=== PATIENT | male | born 1955 | race Caucasian/White ===

== ENCOUNTER 2017-02-12 09:01 | Inpatient (IN) | payer MEDICARE ==
--- NOTE | 2017-02-12 09:28 | ED.PDOC ---
History of Present Illness - General Chief Complaint: Abdominal Pain Stated Complaint: left sided abd pain radiating to back Time Seen by Provider: 02/12/17 09:15 Source: patient Exam Limitations: no limitations - History of Present Illness Initial Comments: Patient presents with two days of hematochezia. He says the blood is bright red and on the toilet paper as well as mixed in the water. He developed LLQ pain last night that was intermittent but in the last two hours has become constant. It wraps around to his left flank. He says it feels like the pain after running for a long time. No previous episodes. Insidious onset. Pain not associated with bowel movements nor eating. No other symptoms. Timing/Duration: 24 hours Severity: mild Improving Factors: nothing Worsening Factors: nothing Associated Symptoms: denies symptoms Allergies/Adverse Reactions: Allergies Penicillins Allergy (Unknown, Verified 02/12/17 09:10) Home Medications: Ambulatory Orders Aspirin [[place] Low Dose Aspiri] 81 mg PO AC 02/12/17 Clonazepam 1 mg PO BEDTIME 02/12/17 Crestor 10 mg PO AC 02/12/17 Fenofibric Acid 45 mg PO 02/12/17 HYDROcodone 10MG/APAP 325MG [[place] 10/325] PRN 02/12/17 Lisinopril 10 mg PO AC 02/12/17 Sertraline HCl 150 mg PO AC 02/12/17 Review of Systems - Review of Systems Constitutional: States: no symptoms reported EENTM: States: no symptoms reported Respiratory: States: no symptoms reported Cardiology: States: no symptoms reported Gastrointestinal/Abdominal: States: see HPI Genitourinary: States: no symptoms reported Musculoskeletal: States: no symptoms reported Skin: States: no symptoms reported Neurological: States: no symptoms reported Endocrine: States: no symptoms reported Hematologic/Lymphatic: States: no symptoms reported Past Medical History (General) - Patient Medical History Hx Seizures: No Hx Stroke: No Hx Dementia: No Hx Asthma: No Hx of COPD: Yes Hx Cardiac Disorders: Yes Hx Congestive Heart Failure: No Hx Pacemaker: No Hx Hypertension: Yes Hx Thyroid Disease: No Hx Diabetes: No Hx Gastroesophageal Reflux: No Hx Renal Disease: No Hx Cancer: No Hx of HIV: No Hx Hepatitis C: No Hx MRSA: No - Vaccination History Hx Tetanus, Diphtheria Vaccination: No Hx Influenza Vaccination: No Hx Pneumococcal Vaccination: No Immunizations Up to Date: No - Social History Hx Tobacco Use: Yes Hx Chewing Tobacco Use: No Hx Alcohol Use: No Hx Substance Use: No Hx Substance Use Treatment: Yes Hx Depression: No Feels Threatened In Home Enviroment: No Feels Threatened In a Relationship: No Hx Physical Abuse: No Hx Emotional Abuse: No Hx Suspected Abuse: No - Activities of Daily Living Hospice Agency (if applicable):: None - Female History Patient is a Female of Child Bearing Age (10 -59 yrs old): No Patient : No Family Medical History - Family History Mother Family History: No Known Living Status: Physical Exam - Physical Exam General Appearance: Alert Respiratory: lungs clear Cardiovascular/Chest: normal peripheral pulses, regular rate, rhythm Gastrointestinal/Abdominal: normal bowel sounds, non tender, soft Back Exam: no CVA tenderness Skin Exam: normal color Progress - Progress Progress: 02/12/17 11:44 CT abdomen/pelvis showed colitis, possibly ischemic. Patient admitted for bowel rest and antibiotics. Departure - Departure Clinical Impression: Colitis Disposition: Admit Patient Condition: Good Departure Forms: ED Discharge - Pt. Copy, Patient Portal Self Enrollment Instructions: DI for Abdominal Pain-Adult Diet: other - as per hospitalist Activity: other - as per hospitalist Referrals: Jose Manuel Meier MD [Primary Care Provider] - 1-2 Weeks Home Medications: Ambulatory Orders Aspirin [[place] Low Dose Aspiri] 81 mg PO AC 02/12/17 Clonazepam 1 mg PO BEDTIME 02/12/17 Crestor 10 mg PO AC 02/12/17 Fenofibric Acid 45 mg PO 02/12/17 HYDROcodone 10MG/APAP 325MG [[place] 10/325] PRN 02/12/17 Lisinopril 10 mg PO AC 02/12/17 Sertraline HCl 150 mg PO AC 02/12/17
--- NOTE | 2017-02-12 11:12 | CT ---
EXAM DESCRIPTION: CT abdomen and pelvis without and with contrast CLINICAL HISTORY: Hematochezia. Abdominal pain. Hematuria. COMPARISON: None Available. TECHNIQUE: Pre and postcontrast spiral CT with intravenous iodinated nonionic contrast. Coronal and sagittal reformatted images. This exam was performed according to our departmental dose-optimization program, which includes automated exposure control, adjustment of the mA and/or kV according to patient size and/or use of iterative reconstruction technique. FINDINGS: Large area of wall thickening and surrounding inflammation involving the splenic flexure and majority of the descending colon. No mass lesion. No diverticular disease. Minimal fluid in the paracolic gutter. The remainder of the large intestine is normal. Atherosclerotic aorta and iliac vessels without aneurysm. Visualized lung bases are clear. Heart size is normal. Stomach and small intestine are normal Liver, spleen, pancreas, gallbladder, adrenal glands and kidneys are normal. No renal, ureteral or bladder mass lesion. No renal stone disease. No pelvic soft tissue mass lesion, adenopathy or free fluid No acute bony abnormality IMPRESSION: Colitis involving the splenic flexure and descending colon. Consider ischemic colitis. Other possibilities might include infectious or inflammatory etiology Electronically signed by: Jose Manuel Quiñones MD 02/12/2017 11:10 AM CDT
--- NOTE | 2017-02-12 12:42 | HP ---
HISTORY OF PRESENT ILLNESS: This 61-year-old, white male is admitted to the hospital via the Emergency Room because of worsening abdominal pain with rectal bleeding. Onset was yesterday afternoon. No previous history of similar symptoms in the past. Pain is especially located in the left lower quadrant of the abdomen. Bright red rectal bleeding noted since yesterday afternoon. No fever, chills, nausea, vomiting. No burning upon urination. The patient is admitted to the hospital for general surgical evaluation and management as well as IV hydration, antibiotic usage and close observation, especially with the possibility of a significant underlying ischemic colitis contributing to the patient's symptoms. PAST MEDICAL HISTORY: 1. High blood pressure. 2. Carotid vessel disease requiring surgery. PAST SURGICAL HISTORY: 1. Right carotid endarterectomy in August of 2016. 2. Ten surgeries on his right knee, the last two of which were total knee arthroplasties. 3. Tonsillectomy and adenoidectomy as a teenager. CURRENT MEDICATIONS: Please refer to list of medicines as verified by the nurses. ALLERGIES: PENICILLIN, which results in a significant allergic reaction. FAMILY HISTORY: Positive for cerebrovascular accident, heart attacks, cancer and diabetes. 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 He has smoked over 2 packs per day for the last 50 years or a 100 pack year history. Encouraged to stop. REVIEW OF SYSTEMS: GENERAL: No significant weight change, fever or chills. HEENT: No hearing or vision appear to be fairly normal. LUNGS: Occasional sputum, but no recent significant shortness of breath and no hemoptysis. CARDIOVASCULAR: Regular without any significant gallops or palpitations. GASTROINTESTINAL: Abdominal pain, especially left lower quadrant. No nausea or vomiting. He has had some bloody stools since yesterday afternoon. GENITOURINARY: No dysuria or hematuria noted grossly. EXTREMITIES: Well formed with some tenderness especially remaining in the right knee after multiple procedures. NEUROLOGIC: The patient is awake, alert and oriented, having pain in the left lower quadrant of the abdomen. PHYSICAL EXAMINATION: VITAL SIGNS: Afebrile. Pulse 87. Blood pressure 128/75. Pulse oximetry 94% on room air. Weight 89.1 kg. GENERAL: The patient is awake and alert, though in distress and receiving pain medications to try to assist. HEENT: Within normal limits. NECK: Supple with bilateral bruits, slightly more prominent on the left than the right with a previous endarterectomy incision scar on the right. LUNGS: Diminished breath sounds. CARDIOVASCULAR: Heart tones are somewhat distant, but fairly regular. ABDOMEN: Very tender, especially in the left lower quadrant. No rebound tenderness. No organomegaly otherwise present. EXTREMITIES: Well-formed with no pedal edema, good range of motion except some tenderness is noted in the right knee compared to the left. NEUROLOGIC: No focal neurological deficits are noted. The patient is awake, alert, oriented and communicative. LABORATORY: White count 13,600 with 75% neutrophils, hemoglobin 13.6, normal platelets. INR 1.04. Chemistries showed potassium 3.7, CO2 24, BUN 20, creatinine 0.92, glucose 123, calcium 9.7, liver enzymes normal, globulin 3.6, albumin 4.2, lipase 16. Urinalysis does show ketonuria, hematuria, and bilirubinuria. No cultures obtained. Abdominopelvic CT scan was performed and revealed evidence of significant colitis involving the left colon and presentation suggestive of an ischemic colitis. Possible infectious or inflammatory to be considered as well. ASSESSMENT: 1. Acute abdominal pain, left lower quadrant. 2. Radiographic evidence of on CT scan of significant left sided colitis with marked mucosal thickening with primary etiologies possibly ischemic versus infectious or inflammatory in etiology. 3. Atherosclerotic cardiovascular disease with history of carotid occlusive disease having received a right carotid endarterectomy about seven months ago. 4. Chronic tobacco abuse, encouraged to stop. 5. Leukocytosis. 6. Mild dehydration, to supplement in an effort to help with generalized circulation. PLAN: The patient is admitted to the hospital for IV hydration, antibiotic usage as well as close general surgical followup and management. We will place on complete GI rest until see by surgery. We will continue with Levaquin and Flagyl. Close followup necessary with followup with Dr. Meier's clinic when clinically stable. Close surgical observation important. #[id number] [facility]
[2017-02-12] MEDS ORDERED: SODIUM CHLORIDE 0.9% (FLUSH) 10 ML SYG IV PRN (12:59)
[2017-02-12] MEDS ORDERED: IV SET AND CAP CHANGE INJ INJ SCH (13:00)
[2017-02-12] MEDS ORDERED: ONDANSETRON INJ 4 MG/2 ML VIAL IV PRN (13:01)
[2017-02-12] MEDS ORDERED: LEVALBUTEROL NEBS 1.25 MG/3 ML VIAL INH PRN (13:01)
[2017-02-12] MEDS ORDERED: HYDROmorphone HCL INJ 2 MG/ML VIAL ONE (13:03)
[2017-02-12] MEDS: HYDROmorphone HCL INJ 2 MG/ML VIAL IV PRN ×4 (13:10→20:46)
[2017-02-12] MEDS ORDERED: levoFLOXacin 500MG IV 100 ML IVPB ONE (13:13)
[2017-02-12] MEDS ORDERED: FAMOTIDINE IV PREMIX 50 ML IVPB ONE (13:13)
[2017-02-12] MEDS ORDERED: metroNIDAZOLE IV PREMIX 500MG 100 ML IVPB ONE ×2 (13:13→20:28)
[2017-02-12] MEDS: KCL 20 MEQ/NS 1,000 ML IVS PRN (13:18)
[2017-02-12] MEDS: FAMOTIDINE IV PREMIX 20 MG in PREMIX BAG 1 BAG IVPB SCH (13:19)
[2017-02-12] MEDS: levoFLOXacin 500MG IV 500 MG in PREMIX BAG 1 BAG IVPB SCH (13:54)
[2017-02-12] MEDS: metroNIDAZOLE IV PREMIX 500MG 500 MG in PREMIX BAG 1 BAG IVPB SCH ×2 (14:45→22:31)
--- NOTE | 2017-02-12 14:47 | PCM.CORE ---
Physician DVT/VTE - 3-4 High Risk Treatments: Sequential Compression Device
--- NOTE | 2017-02-12 15:35 | RAD ---
EXAM DESCRIPTION: Chest,2 Views CLINICAL HISTORY: abdominal pain COMPARISON: None FINDINGS: Two-view chest x-ray shows cardiomediastinal silhouette and pulmonary vasculature to be within normal limits. Mild tortuosity the thoracic aorta is seen. The lungs are normally aerated and clear. Costophrenic angles are sharp. Osseous structures are unremarkable IMPRESSION: No radiographic evidence of acute cardiopulmonary disease. Electronically signed by: Ryan Villagran MD 02/12/2017 3:33 PM CDT
[2017-02-12] MEDS: NICOTINE PATCH 14 MG TD SCH (15:41)
--- NOTE | 2017-02-12 16:54 | CONS ---
DATE OF CONSULTATION: 02/12/17 HISTORY OF PRESENT ILLNESS: The patient is a 61-year-old male who was admitted to through the Emergency Room for abdominal pain and rectal bleeding. The onset of this was yesterday afternoon with no previous history of like symptoms. The patient's has eaten all the same foods and no one else has had any symptoms at all. He denies fever or chills, nausea or vomiting. He denies dysuria, polyuria. PAST MEDICAL HISTORY: 1. Longstanding history of hypertension. PAST SURGICAL HISTORY: 1. Recent right carotid endarterectomy. 2. Tonsillectomy and adenoidectomy as a child. 3. Multiple surgeries on his knees including two total knee arthroplasties. CURRENT MEDICATIONS: 1. Albuterol inhaler. 2. Clonazepam. 3. Xopenex. 4. He has been started on Levaquin and Flagyl. ALLERGIES: PENICILLIN. FAMILY HISTORY: Positive for diabetes, cardiovascular disease and malignancies. SOCIAL HISTORY: The patient is and lives with his . He has 100 pack year history of tobacco use at least. No history of alcohol abuse. 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 He is disabled. REVIEW OF SYSTEMS: Noncontributory except as in the history of present illness. He has no significant loss of weight, no change in his bowel habits prior to the hematochezia. No complaints of chest pain or shortness of breath other than with exercise. He has no urinary symptoms. PHYSICAL EXAMINATION: VITAL SIGNS: The patient is currently afebrile, normotensive. HEENT: Sclerae nonicteric. Mucous membranes moist. NECK: Without adenopathy. BACK: Without CVA tenderness. CHEST: Equal breath sounds bilaterally anteriorly. HEART: Regular rate and rhythm. ABDOMEN: Soft. Diffusely tender, especially in the left lower quadrant. There is no referred tenderness and no organomegaly is identified. There are no hernias identified. EXTREMITIES: Without cyanosis, clubbing or edema. LABORATORY: White count 15,000 with 75% neutrophils, hemoglobin 13.6. INR 1.04. Potassium 3.7, creatinine 0.92, blood sugar 123. Liver enzymes within normal limits. Urinalysis reveals ketones, hematuria and bilirubinuria. CT scan of the abdomen revealed inflammatory process involving the left colon to the splenic flexure, but no free air or free fluid. Question of ischemic versus inflammatory versus infectious colitis are entertained. ASSESSMENT: 1. Likely ischemic colitis with mild peritonitis. PLAN: Bowel rest, supportive measures, and IV antibiotics with Levaquin and Flagyl. Repeat lab in the morning. Followup any change. He will need a colonoscopy sometime in the near future. #[id number] [facility]
[2017-02-12] MEDS: IPRATROPIUM/ALBUTEROL 3 ML VIAL INH SCH (21:03)
[2017-02-13] MEDS ORDERED: FAMOTIDINE IV PREMIX 50 ML IVPB ONE ×2 (00:08→11:32)
[2017-02-13] MEDS: FAMOTIDINE IV PREMIX 20 MG in PREMIX BAG 1 BAG IVPB SCH ×2 (01:24→14:04)
[2017-02-13] MEDS: KCL 20 MEQ/NS 1,000 ML IVS PRN ×2 (01:27→11:27)
[2017-02-13] MEDS ORDERED: metroNIDAZOLE IV PREMIX 500MG 100 ML IVPB ONE ×3 (06:19→20:04)
[2017-02-13] MEDS: metroNIDAZOLE IV PREMIX 500MG 500 MG in PREMIX BAG 1 BAG IVPB SCH ×3 (06:35→21:32)
[2017-02-13] MEDS ORDERED: levoFLOXacin 500MG IV 100 ML IVPB ONE (07:24)
[2017-02-13] MEDS: NICOTINE PATCH 14 MG TD SCH (08:49)
[2017-02-13] MEDS: IPRATROPIUM/ALBUTEROL 3 ML VIAL INH SCH ×4 (09:42→20:02)
[2017-02-13] MEDS: levoFLOXacin 500MG IV 500 MG in PREMIX BAG 1 BAG IVPB SCH (13:12)
--- NOTE | 2017-02-13 13:53 | PN ---
DATE: 02/13/17 SUBJECTIVE: The patient is sitting up in the bed stating he feels much improved with much less abdominal pain since last evening. He has taken some clear liquids and seems to tolerate it well. We will slowly advance diet as tolerated. Encourage increased activity important. No nausea or vomiting. OBJECTIVE: VITAL SIGNS: Afebrile. Pulse 90. Blood pressure 150/94. Pulse oximetry 94% on room air. Weight 89.8 kg. GENERAL: The patient is awake and alert and feeling improved with much less abdominal discomfort. He, in fact, is a little hungry, which is much improved over yesterday. HEART: Somewhat distant. LUNGS: Clear. ABDOMEN: Still diminished bowel tones, though present and more active than yesterday. automatic bow maker machine tender to touch, especially in the lower left quadrant. No masses are noted. LABORATORY: White count down from 13,600 to 9,700. Hemoglobin down to 12.3. Chemistries show potassium up to 3.9, CO2 25, BUN 14, creatinine 0.89, C- reactive protein elevated at 17.3, albumin 3.4. ASSESSMENT: 1. Acute abdominal pain, showing some clinical improvement. Located in the left lower quadrant. 2. Radiographic evidence of significant left sided colitis with marked mucosal thickening suggesting possible ischemic versus infectious or inflammatory etiology with noted elevation of the C-reactive protein. 3. Atherosclerotic cardiovascular disease with history of carotid occlusive disease requiring a right carotid endarterectomy seven months ago. 4. Chronic tobacco abuse, encouraged to stop. 5. Leukocytosis. 6. Mild dehydration, supplementation being given. PLAN: We appreciate Dr. Hall seeing the patient as well. We will decrease the IV rate and increase his diet with clear liquids. Encouraged to walk four or five times per day and will make his IV saline locked to help his ability to walk. Close observation. He will eventually require GI evaluation with a colonoscopy. Close followup necessary. #[id number] [facility]
[2017-02-13] MEDS: HYDROmorphone HCL INJ 2 MG/ML VIAL IV PRN (22:10)
[2017-02-14] MEDS ORDERED: FAMOTIDINE IV PREMIX 50 ML IVPB ONE (04:02)
[2017-02-14] MEDS: FAMOTIDINE IV PREMIX 20 MG in PREMIX BAG 1 BAG IVPB SCH (04:04)
[2017-02-14] MEDS ORDERED: metroNIDAZOLE IV PREMIX 500MG 100 ML IVPB ONE (08:04)
[2017-02-14] MEDS: IPRATROPIUM/ALBUTEROL 3 ML VIAL INH SCH (08:27)
[2017-02-14] MEDS: NICOTINE PATCH 14 MG TD SCH (08:37)
[2017-02-14] MEDS: metroNIDAZOLE IV PREMIX 500MG 500 MG in PREMIX BAG 1 BAG IVPB SCH (08:37)
[2017-02-14 09:53] VITALS: BP 148/72; TEMP 98
[2017-02-14 10:28] VITALS: O2SAT 99
--- NOTE | 2017-02-14 13:23 | CONS ---
DATE OF CONSULTATION: 02/14/17 REQUESTING PHYSICIAN: Vladimir Hall MD REASON FOR CONSULTATION: Abdominal pain with hematochezia. HISTORY OF PRESENT ILLNESS: Mr. Wang is a 61-year-old gentleman with a history of carotid atherosclerosis status post endarterectomy who presented with acute onset of abdominal pain in the left lower quadrant with large volume rectal bleeding two days ago. He states that Sunday evening he developed some lower abdominal cramping and passed some blood without much stool. The toilet filled to a red color. Over the course of the evening, the pain in his left side became severe and he came to the Emergency Room for evaluation. His hemoglobin was 13.6. CT scan of the abdomen showed thickening of the left colon and descending colon. He was placed on antibiotics and otherwise managed supportively. There was no antecedent diarrhea, no nausea, vomiting or fever. His symptoms since he has been admitted to the hospital have largely resolved. He has no further abdominal pain and no further rectal bleeding. He has not had a bowel movement since he has been admitted. PAST MEDICAL HISTORY: 1. High blood pressure. 2. Carotid stenosis status post endarterectomy. PAST SURGICAL HISTORY: 1. Right carotid endarterectomy in August of 2016. 2. Multiple surgeries on the right knee. 3. Tonsillectomy. CURRENT MEDICATIONS: Please refer to list of medications as verified by the nurses. ALLERGIES: PENICILLIN. FAMILY HISTORY: No significant gastrointestinal disease or gastrointestinal malignancy. SOCIAL HISTORY: Former drinker. He is a two-pack per day smoker for the last 50 years resulting in a 100 pack year history. REVIEW OF SYSTEMS: Ten-point review of systems is otherwise negative aside from what was mentioned above. PHYSICAL EXAMINATION: VITAL SIGNS: Pulse 87. Afebrile. Blood pressure 128/75. Oxygen saturation normal. GENERAL: He is awake, alert and comfortable. HEENT: Anicteric. Moist mucous membranes. NECK: Trachea is midline with no masses. CHEST: Lungs clear to auscultation. HEART: Regular rate and rhythm. ABDOMEN: Nontender, nondistended, even to deep palpation. EXTREMITIES: No lower extremity edema. NEUROLOGIC: Cranial nerves II-XII are grossly intact. He has appropriate affect. ASSESSMENT: 1. Left lower quadrant pain with hematochezia and abnormal CT scan of the abdomen showing thickening of the descending and sigmoid colon. Overall, I suspect that this presentation is most consistent with ischemic colitis which is now resolved. RECOMMENDATION: The patient has not had a colonoscopy in many years and a neoplastic etiology needs to be excluded. We will arrange for him to have an outpatient colonoscopy up on discharge. This is not likely an infectious colitis and I believe antibiotics could be discontinued. The patient's diet can be advanced to regular and if he tolerates this, he can be discharged home. GI will sign off now. Thank you for this consultation. #[id number] [facility]
--- NOTE | 2017-02-17 13:10 | DS ---
SUPERVISING PHYSICIAN: Hermann Campoverde M.D. DISCHARGE DIAGNOSIS: 1. Left lower quadrant pain with hematochezia and abnormal CT scan of the abdomen showing thickening of the descending sigmoid colon consistent with ischemic colitis with mild peritonitis resolved prior to discharge. 2. Atherosclerotic cardiovascular disease with history of carotid occlusive disease having received a right carotid endarterectomy seven months prior to this admission. 3. Chronic tobacco abuse, encouraged to stop smoking. 4. Leukocytosis, resolved prior to discharge secondary to number 1. 5. Mild dehydration showing improvement after IV fluids. HISTORY OF PRESENT ILLNESS: Mr. Wang is a 61-year-old male that was admitted to the hospital from the Emergency Room secondary to worsening abdominal pain with rectal bleeding. The onset of the pain and bleeding was the day before admission. He had no previous history of similar symptoms in the past. His pain noted was especially located in the left lower quadrant of the abdomen. He had noted some bright red rectal bleeding since the day before admission. He denied any fever, chills, nausea, vomiting or burning upon urination. The patient was admitted to the hospital for general surgical evaluation and management as well as IV hydration, antibiotic usage and close observation, especially for possibly for significant underlying ischemic colitis contributing to the patient's symptoms. The patient was admitted in stable condition. LABORATORY: White count on admission did show leukocytosis of 13.6, at discharge it seemed to resolve and return to normal at 8.3. Hemoglobin and hematocrit initially showed to be 13.6 and 40.7 after initiation of fluid and treatment, at discharge it stabilized at 11.8 and 35.7, platelet count was within normal limits, at discharge was 178,000. Differential did show a left shift initially, but this resolved after initiation of treatment. Coagulation studies showed normal PT and PTT. Chemistries showed normal electrolytes on admission with BUN 20, creatinine 0.92. Liver functions were all within normal limits. Lipase was low at 16. He did have an elevated C reactive protein of 17.3. Prior to discharge, potassium was 3.5. All other electrolytes were within normal range. Glucose 101, calcium 8.8. He had a urinalysis that showed 15 of ketones with large amount of blood, small amount of bilirubin. On microscopic exam revealed 10 to 20 RBCs, 1 to 3 WBCs, rare epithelial and rare bacteria. No microbiology specimens were submitted. RADIOLOGY: In the Emergency Department prior to admission, he had an abdominal/ pelvic CT and per radiology interpretation was noted colitis involving the splenic flexure and descending colon. Consider ischemic colitis. He also had a chest x-ray and per radiology interpretation two view there was no radiographic evidence of acute cardiopulmonary disease. CONSULTATION: Please see Dr. Covarrubias's notes for his detailed report. HOSPITAL COURSE: Mr. Wang was admitted as noted on 02/12/17 for concerns for ischemic colitis. He was started on IV fluids and made NPO initially and initiated IV antibiotics to include Levaquin and Flagyl. He was seen in consultation by Dr. Covarrubias on the date of discharge who recommended that the patient had clinically improved and was tolerating a diet, and was able to be discharged home no longer needing continuation of antibiotics. PLAN: The patient was discharged was 02/14/17 to have close clinical followup soon after discharge in the outpatient setting to have a colonoscopy scheduled through Dr. Covarrubias's office. He was instructed to resume his home medications as directed and start any new medications as prescribed. He is to have close clinical followup with Dr. Meier as scheduled in 1 to 2 weeks. He was to return to the hospital should he have any concerning symptoms or failure of improvement, or any recurrence of blood in his stools. No new prescriptions were provided at discharge. All previous prescriptions were resumed as prior to admission. Diet was low residual as tolerated. Activity was to increase as tolerated. Condition at discharge was stable and improved. #[id number] [facility]
== END 2017-02-14 13:17 | disposition home or self-care (01) | DRG 394 ==
LOC: ER 09:01 → MS 12:41
PROVIDERS: ADMIT Emergency Medicine; ATTEND Nurse Practitioner Family
PROC: BW21YZZ Computerized Tomography (CT Scan) of Abdomen and Pelvis using Other Contrast (ICD-10-PCS; principal; 2017-02-12)
DX: K55.9 Vascular disorder of intestine, unspecified (principal); K92.1 Melena; E86.0 Dehydration; I25.10 Atherosclerotic heart disease of native coronary artery without angina pectoris; F17.210 Nicotine dependence, cigarettes, uncomplicated; I10 Essential (primary) hypertension; Z98.890 Other specified postprocedural states; Z88.0 Allergy status to penicillin; Z79.899 Other long term (current) drug therapy

== ENCOUNTER → 2019-04-15 | Outpatient (CLI) | payer MEDICARE | LOC: GMAM 11:35 | PROVIDERS: ATTEND Family Medicine | DX: R53.83 Other fatigue (principal); E78.2 Mixed hyperlipidemia; R73.9 Hyperglycemia, unspecified; Z12.5 Encounter for screening for malignant neoplasm of prostate | CPT/HCPCS: 84439; 84443; G0103 ==

== ENCOUNTER → 2020-08-03 | Outpatient (CLI) | payer MEDICARE | LOC: GMAM 11:59 | PROVIDERS: ATTEND Family Medicine | DX: Z12.5 Encounter for screening for malignant neoplasm of prostate (principal); I10 Essential (primary) hypertension; R73.9 Hyperglycemia, unspecified; E78.2 Mixed hyperlipidemia ==